=== PATIENT | male | born 1940 | race Caucasian/White ===

== ENCOUNTER 2019-01-04 08:22 | Outpatient (CLI) | payer OTHER | END 2019-01-04 08:32 | disposition home or self-care (01) | LOC: LAB 08:22 | DX: D64.89 Other specified anemias (principal); E11.9 Type 2 diabetes mellitus without complications; E78.2 Mixed hyperlipidemia; K76.89 Other specified diseases of liver; E03.8 Other specified hypothyroidism; E55.9 Vitamin D deficiency, unspecified; R29.898 Other symptoms and signs involving the musculoskeletal system ==

== ENCOUNTER 2019-01-04 09:11 | Outpatient (CLI) | payer OTHER | END 2019-01-04 09:35 | disposition home or self-care (01) | LOC: SONOGRAMA 09:11 | DX: E03.8 Other specified hypothyroidism (principal); E04.1 Nontoxic single thyroid nodule; E04.8 Other specified nontoxic goiter ==

== ENCOUNTER 2019-01-15 10:23 | Outpatient (CLI) | payer OTHER | END 2019-01-15 10:31 | disposition home or self-care (01) | LOC: NUCLEAR 10:23 | DX: M81.0 Age-related osteoporosis without current pathological fracture (principal) ==

== ENCOUNTER 2021-06-17 09:13 | Outpatient (CLI) | payer OTHER | END 2021-06-17 09:23 | disposition home or self-care (01) | LOC: SONOGRAMA 09:13 | DX: M75.81 Other shoulder lesions, right shoulder (principal) ==

== ENCOUNTER → 2024-09-22 | Emergency (ER) | payer OTHER ==
[~2024-09-22] VITALS: Ht 167.6 cm; Wt 63.5 kg
[~2024-09-22] MED LIST: ACETAMINOPHEN 500 MG GEL..CAP PO ONE; ACETAMINOPHEN 500 MG GEL..CAP PO STA; BACITRACIN-NEOMYCIN-POLYMYXIN 0.9 GM PACKET TOP ONE; CLEOCIN HCL300 MG PO; CLINDAMYCIN PHOSPHATE 150 MG/ML (300mg) ONE; CLINDAMYCIN PHOSPHATE 300 MG in 0.9 % SODIUM CHLORIDE 50 ML IV SCH; COZAAR50 MG; TYLENOL
[2024-09-22 10:25] LABS: URINE APPEARANCE Clear; URINE BILIRRUBIN Negative (NEGATIVE); URINE BLOOD Negative; URINE COLOR Yellow; URINE KETONE Negative (NEGATIVE); URINE LEUKOCYTE Negative; URINE NITRATE Negative; URINE PROTEIN Negative (NEGATIVE); URINE UROBILINOGEN 0.2 E.U./dl
[2024-09-22 10:36] LABS: HEMATOCRIT 43.1 % (39.0-48.0); HEMOGLOBIN 14.3 g/dL (13-16.00); MEAN CELL VOLUME 94.3 fL (80.0-100.00); MEAN CORPUSCULAR HEMOGLOBIN 31.3 pg (27.00-32.0); MEAN CORPUSCULAR HGB CONC 33.2 g/dl (32.0-36.0); PLATELET COUNT 176 K/uL (150-450); RED BLOOD COUNT 4.57 M/uL (4.00-6.00); RED CELL DISTRIBUTION WIDTH 12.8 % (11.5-14.5)
[2024-09-22 10:38] LABS: CALCIUM 9.2 mg/dL (8.5-10.1); CREATININE SERUM 1.4 mg/dL (0.70-1.30); GFR 48.16; POTASSIUM 4.14 mEq/L (3.5-5.1)
[2024-09-22 10:39] LABS: URINE BACTERIA 1.2 uL (0.0-1933); URINE EPITHELIAL CELLS 0.7 uL (0.0-38.8); URINE GLUCOSE >=1000 MG/DL (NEGATIVE); URINE RBC 1.4 uL (0.0-20.8); URINE WBC 1.2 uL (0.0-23.2)
== END | disposition home or self-care (01) ==
LOC: ER 09:35
PROVIDERS: Emergency Medicine
DX: L02.415 Cutaneous abscess of right lower limb (principal); I10 Essential (primary) hypertension; E11.9 Type 2 diabetes mellitus without complications; Z88.6 Allergy status to analgesic agent
CPT/HCPCS: 10060; 96365; 96366; 99282; J3490